=== PATIENT | male | born 1950 | race Two or more races ===

== ENCOUNTER 2020-07-24 20:59 | Emergency (ER) | payer BC, OTHER ==
[~2020-07-24] VITALS: Ht 157.5 cm; Wt 65.0 kg
--- NOTE | 2020-07-24 21:47 | NUR ---
Patient presents to ER c/o right shoulder pain radiating down to elbow x1 week. Patient was seen and UC today and they "gave him a shot of something that didn't help." Patient's pain has increased since then. Patient denies trauma. Patient is in NAD; appears agitated. Daughter at bedside translating.
[2020-07-24] MEDS ORDERED: KETOROLAC 30 MG/1 ML IM ONE (22:00)
[2020-07-24] MEDS ORDERED: HYDROcodone/APAP 5/325 TABLET PO ONE (22:00)
[2020-07-24] MEDS ORDERED: DIAZEPAM 5 MG TABLET PO ONE (22:00)
[2020-07-24] MEDS ORDERED: TRIAMCINOLONE ACETONIDE 40 MG/ML, 1ML IM ONE (22:00)
[2020-07-24] MEDS ORDERED: BUPIVACAINE/PF 0.5% INFIL ONE (22:00)
[2020-07-24] MEDS ORDERED: BUPIVACAINE 0.25% ONE (22:21)
[2020-07-24] MEDS ORDERED: HYDROcodone/APAP 5/325 TABLET ONE (23:04)
[2020-07-24] MEDS ORDERED: DIAZEPAM 5 MG TABLET ONE (23:04)
[2020-07-24] MEDS ORDERED: KETOROLAC 60 MG/2 ML ONE (23:04)
--- NOTE | 2020-07-24 23:12 | NUR ---
TASK RN: PT. MEDICATED PER AUG. DR. HATCH AT BS FOR SHOULDER TRIGGER POINT INJECTION. POC FOR D/C DISUCSSED WITH PT. AND DAUGHTER AT BS.
[2020-07-25 00:01] VITALS: BP 128/72
== END 2020-07-25 00:01 | disposition home or self-care (01) ==
LOC: ED 23:26
DX: M62.838 Other muscle spasm (principal); M25.511 Pain in right shoulder; R94.31 Abnormal electrocardiogram [ECG] [EKG]
CPT/HCPCS: 20552; 73030; 93005; 96372; 99284; J1885

== ENCOUNTER 2020-09-07 15:59 | Emergency (ER) | payer SELFPAY ==
[~2020-09-07] VITALS: Ht 160 cm; Wt 63.3 kg
[2020-09-07 16:09] VITALS: BP 136/87
[2020-09-07] MEDS ORDERED: LIDOCAINE-MPF 1%, 5ML ONE (16:41)
[2020-09-07] MEDS ORDERED: DIPH,PERTUSS(ACELL),TET VAC/PF 0.5 ML IM-VACC ONE ×2 (16:42→17:00)
[2020-09-07] MEDS ORDERED: LIDOCAINE-MPF 1%, 5ML INFIL ONE (17:00)
--- NOTE | 2020-09-07 17:15 | NUR ---
PT STATES HE HAD TDAP IN JUNE. ELENI PULLED FOR PROVIDER ADMIN.
--- NOTE | 2020-09-07 17:23 | NUR ---
ERP AT BEDSIDE FOR SUTURES.
== END 2020-09-07 18:05 | disposition home or self-care (01) ==
LOC: ED 18:04
DX: S01.511A Laceration without foreign body of lip, initial encounter (principal); S01.21XA Laceration without foreign body of nose, initial encounter; W01.0XXA Fall on same level from slipping, tripping and stumbling without subsequent striking against object, initial encounter; Y93.89 Activity, other specified; Y92.488 Other paved roadways as the place of occurrence of the external cause; Y99.8 Other external cause status
CPT/HCPCS: 40650; 99284